=== PATIENT | female | born 1945 | race Caucasian/White ===

== ENCOUNTER 2016-06-26 08:30 | Outpatient (CLI) | payer MEDICARE, OTHER ==
[2016-06-10 16:46] VITALS: BP 136/67
== END 2016-06-26 08:32 ==
LOC: POD 08:30
PROVIDERS: ATTEND Podiatrist Public Medicine
DX: B35.1 Tinea unguium (principal); L60.0 Ingrowing nail; M79.674 Pain in right toe(s); M79.675 Pain in left toe(s)
CPT/HCPCS: 11721; G0463

== ENCOUNTER 2016-07-09 12:07 | Outpatient (CLI) | payer MEDICARE, OTHER ==
[2016-06-10 16:46] VITALS: BP 136/67
[2016-07-09 22:02] LABS: TOTAL PROTEIN 6.8 g/dL (6.0-8.5)
== END 2016-07-09 12:10 ==
LOC: LAB 12:07
PROVIDERS: ATTEND Family Medicine
DX: E78.2 Mixed hyperlipidemia (principal)
CPT/HCPCS: 36415; 80053; 80061

== ENCOUNTER 2016-08-15 08:05 | Emergency (ER) | payer MEDICARE, OTHER ==
[2016-08-15 08:34] LABS: BASOPHILS % 0.3 (0.0-1.5); EOSINOPHILS % 3.1 % (0.0-6.8); LYMPHOCYTES # 1.2 # k/uL (0.6-4.0); MEAN CORPUSCULAR HEMOGLOBIN 25.8 pg (28.0-34.0); MONOCYTES # 0.5 # k/uL (0.0-0.9); NEUTROPHILS # 8.6 # k/uL (1.4-7.7)
[2016-08-15] MEDS ORDERED: MAGNESIUM HYDROXIDE/AL HYDROX 30 ML UDC PO ONE (08:40)
[2016-08-15] MEDS ORDERED: Lidocaine 2%Visc 15ml 20 MG/ML UDC ONE (08:40)
[2016-08-15] MEDS: MAG HYDROX/AL HYDROX/SIMETH 30 ML, Lidocaine 2%Visc 15ml 20 MG, PHENobarb/HYOSCY/ATROPI... PO ONE ×3 (08:44)
--- NOTE | 2016-08-15 08:46 | ED Physician Documentation ---
Chest Pain - HISTORIAN Historian: patient, spouse - HPI Stated Complaint: "Acid Reflux" Chief Complaint: Chest Pain Additional Information: across the abd upper-epigastric pain w/ slight pain lower chest onset awoke 0530 after ate xs fruit last noct-assoc a[place]sha [place]. pmh GERD. says could hear stomach growl easily. Onset: hours (0530) Duration: waxing, waning (rates 7/10 but laughs and jokes) Last known Well Date: 08/14/16 Last Known Well Time: 20:00 Context: sleep Severity: moderate Quality: pressure, burning Chest Pain Radiation: no radiation Chest Pain Signs/Symptoms: diaphoresis. denies: nausea, vomiting, cool extremities, dizziness, tachypnea, tachycardia, hypotension, palpitations Relieved By: other (7up did not help even w/belching) - ROS CONST: none (slight normal color diarrhea this am-yest bm=ok) MS/LYMPH: none GI/: nausea, diarrhea. denies: vomiting, black stools EYES/ENT: none SKIN/ENDO: none NEURO/PSYCH: none - PAST HX TX risk factors: hypertension, other (gerd djd gout recent knee abscess being drained-doing well---also recent sinusitis-on augmentin and tessalon- improving). denies: cardiac disease, AMI, angina, CHF DVT/PE Risk Factors: none (has leg swelling several checks for DVT) Neuro deficit: none GI disease: GERD, steroids (occasionallyh for djd-not on them now) Lung disease: none Surgeries/Procedures: denies: cholecysectomy, appendectomy, hysterectomy Allergies/Adverse Reactions: Allergies Allergy/AdvReac Type Severity Reaction Status Date / Time Sulfa (Sulfonamide Allergy Intermediate hives Verified 08/15/16 08:36 Antibiotics) morphine AdvReac Severe Hives Verified 08/15/16 08:36 levofloxacin [From Levaquin] AdvReac Hives Verified 08/15/16 08:36 Home Medications: Ambulatory Orders Medication Instructions Recorded Fish Oil/Borage/Flax/Om3,6,9#1 2 tab PO D 04/27/14 [[place] 3-6-9 1,200 mg Softgel] Ibuprofen [Motrin Ib] 800 mg PO D 04/27/14 - SOCIAL HX Smoking History: non-smoker Alcohol Use: none Drug Use: none - FAMILY HX Family HX: denies: CAD under 55 (F/D CVA M/D/CA BREAST) - VITAL SIGNS Vital Signs: Vital Signs Temp Pulse Resp BP Pulse Ox 97 F L 88 18 146/65 99 08/15/16 08:05 08/15/16 08:19 08/15/16 08:05 08/15/16 08:05 08/15/16 08:19 - REVIEWED ASSESSMENTS Nursing Assessment Reviewed: Yes Vitals Reviewed: Yes ED Results Lab/Radiology - Lab Results Lab Results: Lab Results 08/15/16 08:20 WBC 10.80 K/ul K/ul (4.00-12.00) RBC 4.18 M/ul M/ul (3.90-5.20) Hgb 10.8 g/dL L g/dL (12.0-16.0) Hct 36.6 % % (34.5-46.5) MCV 87.7 fl fl (80.0-100.0) MCH 25.8 pg L pg (28.0-34.0) MCHC 29.4 g/dL L g/dL (30.0-36.0) RDW 15.6 % H % (11.3-14.3) Plt Count 397 K/mm3 K/mm3 (130-400) Neut % (Auto) 80.0 % H % (39.0-79.0) Lymph % (Auto) 10.7 % L % (16.0-50.0) Addison % (Auto) 5.0 % % (0.0-11.0) Eos % (Auto) 3.1 % % (0.0-6.8) Baso % (Auto) 0.3 (0.0-1.5) Neut # 8.6 # k/uL H # k/uL (1.4-7.7) Lymph # 1.2 # k/uL # k/uL (0.6-4.0) Addison # 0.5 # k/uL # k/uL (0.0-0.9) Eos # 0.3 # k/uL # k/uL (0.0-0.6) Baso # 0.0 # k/uL # k/uL (0.0-0.5) Reactive Lymphs % 0.8 % % (0.0-5.0) Reactive Lymphs # 0.1 # k/uL # k/uL (0.0-0.8) - Radiology Radiology Impressions: cxr=cardiomegally-no acute pos findings - Orders Orders: ED Orders Category Date Time Status Continuous EKG monitoring Q30M Care 08/15/16 08:19 Active Continuous Pulse Oximetry Q30M Care 08/15/16 08:[address] Saline Lock/IV NOW Care 08/15/16 08:19 Completed CHEST 1 VIEW [RAD] Stat Exams 08/15/16 08:19 Ordered CBC/PLATELET/DIFF Routine Lab 08/15/16 08:20 Completed CMP Routine Lab 08/15/16 08:20 Received CREATINE KINASE Routine Lab 08/15/16 08:20 Received TROPONIN I (cTnI) Stat Lab 08/15/16 08:20 Received Mag Hydrox/Al Hydrox/Simeth [Mylanta] 30 ml Med 08/15/16 08:41 Discontinued Lidocaine 2%Visc 15ml [Xylocaine] 20 mg PHENobarb/HYOSCY/ATROPINE/SCOP [] 10 ml PO NOW Oxygen Daily Oxygen 08/15/16 08:30 Ordered EKG WITH COMPARISON Stat Ther 08/15/16 08:19 Ordered Chest Pain Physical Exam - EXAM General Appearance: mild distress, anxious EENT: eye inspection normal Neck: nml inspection, no carotid bruit. No: JVD present, lymphadenopathy Respiratory: no resp. distress, chest non-tender, nml breath sounds CVS: reg. rate & rhythm, no murmur, no gallop Abdomen: soft, tenderness (EPIGASTRIC) Skin: warm/dry, normal color. No: cyanosis, diaphoresis, jaundice Extremities: non-tender, normal range of motion, edema. No: tenderness Neuro: oriented X3, CN's nml as tested, motor nml, sensation nml, mood/affect nml Discharge Clincal Impression: exab gerd, atypical chest pain Home Medications: Ambulatory Orders Fish Oil/Borage/Flax/Om3,6,9#1 [[place] 3-6-9 1,200 mg Softgel] 2 tab PO D Ibuprofen [Motrin Ib] 800 mg PO D 04/27/14 Comments: home cont prev tx add antacid-f/u w/pcp or rted Condition: Good Disposition: 01 HOME, SELF-CARE Decision to Admit: NO Decision Time: 10:22
[2016-08-15 08:48] LABS: eGFR (African) > 60; eGFR (Non-African) > 60
[2016-08-15 10:35] VITALS: BP 132/68
--- NOTE | 2016-08-15 13:09 | Diagnostic Imaging Report ---
[facility] [address] [facility].[address] [address] Report Submission Date: Aug 15, 2016 9:28:26 AM DEMOLITION HAMMER OPERATOR Patient Study Name: FADUMO TABARES Date: Aug 15, 2016 8:38:58 AM DEMOLITION HAMMER OPERATOR Modality Type: CR Gender: F Description: CHEST : 43 Institution: [facility] Physician MANI CHENG - ER Chest, 1 view History: CHEST PAIN SINCE THIS AM Findings: The heart size is mildly enlarged. The lungs are clear. There is no pleural effusion or pneumothorax identified. The osseous structures are normal. Impression: 1. No acute pulmonary disease. Electronically signed on Aug 15, 2016 9:28:26 AM DEMOLITION HAMMER OPERATOR by: Josias MCDANIELS
== END 2016-08-15 10:30 | disposition home or self-care (01) ==
LOC: ED 08:05
DX: K21.9 Gastro-esophageal reflux disease without esophagitis (principal); R07.9 Chest pain, unspecified
CPT/HCPCS: 71010; 80053; 82550; 84484; 85025; 93005; A9270; 99283; S1016

== ENCOUNTER 2016-08-30 08:58 | Outpatient (CLI) | payer MEDICARE, OTHER ==
--- NOTE | 2016-09-02 10:33 | OP Clinic Progress Note ---
REFERRING PHYSICIAN: Dr. Yeny Quintero REASON FOR VISIT: Danette Bee returns for follow up on her idiopathic polyarthritis, possible pseudogout, hyperuricemia or gout. She is finally off prednisone and she is doing fairly well. She has occasional flares of pain in the upper arms and the hands with a little bit of swelling and that resolve with indomethacin. Her weight keeps climbing up but she promises to try to diet and exercise. She developed an abscess of her right knee. This was incised and drained. Cultures were negative. She remains under the care of the wound clinic at [facility]. PRESENT MEDICATIONS: 1. Spironolactone 25 mg daily. 2. Requip 1 mg 3 times a day. 3. Oxybutynin 5 mg twice a day. 4. Omeprazole. 5. Lasix 40 mg daily. 6. Ferrous sulfate 324 mg daily. 7. Diltiazem 100 mg daily. 8. Lipitor 20 mg at bedtime. 9. Allopurinol 300 mg daily. 10. Indocin as needed. REVIEW OF SYSTEMS: Presently, no fevers, chills, sweats, chest pain, shortness of breath, cough, wheezing, nausea, vomiting, or diarrhea. PHYSICAL EXAMINATION: GENERAL: On exam, she looks well. VITAL SIGNS: T: 96.2, R: 18, heart rate is 90 and regular, BP: 150/85. HEENT: External ears and nose are unremarkable. LUNGS: Clear. HEART: Regular rate and rhythm. ABDOMEN: Soft. VASCULAR: No edema or cyanosis. SKIN: No rash. JOINTS: DIPs, PIPs, MCPs, wrists, elbows, shoulders are grossly unremarkable. LABORATORY: Review of her labs, shows mild anemia on August 15 with a hemoglobin of 10.8. Her white count was otherwise unremarkable. Creatinine was stable at 0.6. Her last uric acid from May 29, 2016, was 4.9. IMPRESSION: 1. Gout, stable. 2. Chondrocalcinosis with pseudogout, stable. PLAN: We will continue her present regimen. I discussed the need for weight loss. I will see her back in 6 months. cc: Dr. Yeny MCDANIELS
== END 2016-08-30 09:00 ==
LOC: RHEU 08:58
PROVIDERS: ATTEND Internal Medicine
DX: M10.9 Gout, unspecified (principal)
CPT/HCPCS: 99213; G0463

== ENCOUNTER 2016-09-25 08:43 | Outpatient (CLI) | payer MEDICARE, OTHER | END 2016-09-25 08:44 | LOC: POD 08:43 | PROVIDERS: ATTEND Podiatrist Public Medicine | DX: B35.1 Tinea unguium (principal); L60.0 Ingrowing nail; M79.674 Pain in right toe(s); M79.675 Pain in left toe(s) | CPT/HCPCS: 11721; G0463 ==

== ENCOUNTER 2016-12-07 09:46 | Outpatient (CLI) | payer MEDICARE, OTHER ==
[2016-12-07 10:27] LABS: BASOPHILS % 0.4 (0.0-1.5); EOSINOPHILS % 3.8 % (0.0-6.8); MEAN CORPUSCULAR HEMOGLOBIN 27.1 pg (28.0-34.0); MEAN CORPUSCULAR VOLUME 87.8 fl (80.0-100.0); MONOCYTES % 6.3 % (0.0-11.0); NEUTROPHILS # 5.8 # k/uL (1.4-7.7)
--- NOTE | 2016-12-07 10:33 | Diagnostic Imaging Report ---
PARRISH GARCIA [facility] [address] [facility] [address] [address] Report Submission Date: Dec 07, 2016 10:30:29 AM CDT Patient Study Name: FADUMO TABARES Date: Dec 07, 2016 10:06:09 AM CDT Modality Type: CR Gender: F Description: UPPER EXTREMITY : 43 Institution: [facility] Physician: PARRISH GARCIA 3 views of the 4th digit Clinical history: 4th digit swelling Findings: No acute fracture dislocation is identified. There is 4th pip joint space narrowing. Impression: 4th pip joint space narrowing Electronically signed on Dec 07, 2016 10:30:29 AM CDT by: Antwan MCDANIELS
== END 2016-12-07 10:00 ==
LOC: LAB 09:46
PROVIDERS: ATTEND Family Medicine
DX: M10.9 Gout, unspecified (principal)
CPT/HCPCS: 73140; 84550; 85025

== ENCOUNTER 2016-12-24 13:44 | Outpatient (CLI) | payer MEDICARE, OTHER ==
[2016-12-24 14:01] LABS: BASOPHILS % 0.2 (0.0-1.5); EOSINOPHILS % 2.9 % (0.0-6.8); MEAN CORPUSCULAR HEMOGLOBIN 27.6 pg (28.0-34.0); MEAN CORPUSCULAR VOLUME 86.4 fl (80.0-100.0); NEUTROPHILS # 8.4 # k/uL (1.4-7.7)
== END 2016-12-24 13:45 ==
LOC: LAB 13:44
PROVIDERS: ATTEND Family Medicine
DX: M25.441 Effusion, right hand (principal); R20.0 Anesthesia of skin
CPT/HCPCS: 36415; 82607; 82746; 84443; 84550; 85025

== ENCOUNTER 2017-01-08 08:42 | Outpatient (CLI) | payer MEDICARE, OTHER | END 2017-01-08 08:44 | LOC: POD 08:42 | PROVIDERS: ATTEND Podiatrist Public Medicine | DX: B35.1 Tinea unguium (principal); L60.0 Ingrowing nail; M79.674 Pain in right toe(s); M79.675 Pain in left toe(s) | CPT/HCPCS: 11721; G0463 ==

== ENCOUNTER 2017-02-28 09:05 | Outpatient (CLI) | payer MEDICARE, OTHER ==
--- NOTE | 2017-02-28 13:11 | OP Clinic Progress Note ---
Dear Dr. Quintero: REASON FOR VISIT: I had the pleasure of seeing Danette Bee in follow up. She is not doing as well as she was when I last saw her. I have been following her for "idiopathic polyarthritis" with concern for polyarticular gout versus possible pseudogout or both. She presently has worsening pain with stiffness kind of generalized but focusing mainly on the hands, shoulders, and feet. She has not noted any significant swelling and no new deformities. Her weight continues to be an issue. Her right knee abscess has resolved. PAST MEDICAL HISTORY: 1. Hypertension. 2. Hyperlipidemia. 3. Recent diagnosis of sleep apnea. PRESENT MEDICATIONS: 1. Spironolactone 25 mg daily. 2. Requip 1 mg 3 times a day. 3. Oxybutynin 5 mg twice a day. 4. Omeprazole. 5. Lasix 40 mg daily. 6. Diltiazem 100 mg daily. 7. Lipitor 20 mg at bedtime. 8. Allopurinol 300 mg daily. 9. Indocin as needed. REVIEW OF SYSTEMS: Patient has been started on a Z-Hugo. The fingers of her left hand, digits 1, 2 , and 3, have been going numb. Otherwise, no fevers, chills, sweats, chest pain, shortness of breath, cough, wheezing, nausea, vomiting, or diarrhea. PHYSICAL EXAMINATION: GENERAL: On exam, she looks well. VITAL SIGNS: T: 96.9, R: 20, Heart rate of 90, BP: 170/70. HEENT: External ears and nose are unremarkable. EOMs are intact. LUNGS: Clear bilaterally. HEART: Regular rhythm. ABDOMEN: Soft. VASCULAR: No edema or cyanosis. PERIPHERAL JOINTS: DIPs are unremarkable except for hard bony swelling. The PIPs are slightly tender; however, the MCPs are swollen and tender and a little ulnar deviation bilaterally. Wrists with good range of motion. Positive carpal tunnel on the left. Elbows and shoulders with good range of motion but with some tenderness to palpation. No effusion. Knees, ankles, and feet are tender. Compression stockings are noted. IMPRESSION: Idiopathic polyarthritis, gout, pseudogout, still concerned about seronegative rheumatoid arthritis (RA), presently with what appears to be carpal tunnel syndrome. PLAN: She had nerve conduction tests and we are waiting for those. I am stopping her Indocin and diclofenac and putting her on prednisone 10 mg twice a day for 4 weeks. We will reevaluate her at that time. We will recheck a sedimentation rate and CRP today, as well as a rheumatoid factor. Thank you very much for the opportunity to participate in the care of your patient. Best regards, cc: Dr. Yeny MCDANIELS
== END 2017-02-28 09:06 ==
LOC: RHEU 09:05
PROVIDERS: ATTEND Internal Medicine
DX: M13.0 Polyarthritis, unspecified (principal); M10.9 Gout, unspecified
CPT/HCPCS: G0463

== ENCOUNTER 2017-03-03 09:22 | Outpatient (CLI) | payer MEDICARE, OTHER | END 2017-03-03 09:23 | LOC: LAB 09:22 | PROVIDERS: ATTEND Internal Medicine | DX: M31.7 Microscopic polyangiitis (principal); G56.00 Carpal tunnel syndrome, unspecified upper limb | CPT/HCPCS: 36415; 84443; 84550; 85651; 86140; 86431 ==

== ENCOUNTER → 2017-04-04 | Outpatient (CLI) | payer MEDICARE, OTHER ==
--- NOTE | 2017-04-04 14:21 | OP Clinic Progress Note ---
REASON FOR VISIT: Danette Bee returns for follow on her idiopathic polyarthritis. When I last saw her 4 weeks ago, I put her on prednisone 10 mg twice a day and she is feeling significantly better. All her joint pain and stiffness has resolved. Her carpal tunnel syndrome, however, on the left has not improved and she is slated for surgery on April 24. PAST MEDICAL HISTORY: 1. Hypertension. 2. Hyperlipidemia. 3. Sleep apnea. PRESENT MEDICATIONS: 1. Allopurinol 300 mg daily. 2. Lipitor 20 mg at bedtime. 3. Diltiazem 100 mg daily. 4. Lasix 40 mg daily. 5. Omeprazole. 6. Oxybutynin. 7. Requip 1 mg 3 times a day. 8. Spironolactone. 9. Prednisone 10 mg twice a day. REVIEW OF SYSTEMS: No fevers, chills, sweats, chest pain, shortness of breath, cough, or wheezing. PHYSICAL EXAMINATION: GENERAL: On exam, she looks well. VITAL SIGNS: Vital signs are stable. HEENT: Sclerae are anicteric. Conjunctivae are pink. No stomatitis or glossitis. LUNGS: Clear. HEART: Regular rhythm. ABDOMEN: Soft. VASCULAR: No edema or cyanosis. PERIPHERAL JOINTS: No synovitis at the DIPs, PIPs, MCPs, wrists, elbows, shoulders, hips, knees, ankles, and feet. Her left wrist is in a brace. DIAGNOSTIC STUDIES: Her last labs show her sedimentation was 32. Rheumatoid factor was again negative. IMPRESSION: Idiopathic polyarthritis. Still concerned for seronegative rheumatoid arthritis versus other. PLAN: I have given her a prescription to be given to the surgeon that if any tissue is obtained, it should be analyzed for crystals and sent to pathology. We are going to taper her off of prednisone prior to her surgery. She is to go to 10 mg daily for 7 days and then 5 mg daily until April 17, at which time she will stop it. Thank you very much. cc: Dr. Yeny MCDANIELS
== END ==
LOC: RHEU 11:33
PROVIDERS: ATTEND Internal Medicine
DX: M13.0 Polyarthritis, unspecified (principal)
CPT/HCPCS: 99213; G0463

== ENCOUNTER 2017-04-09 08:46 | Outpatient (CLI) | payer MEDICARE, OTHER | END 2017-04-09 09:00 | LOC: POD 08:46 | PROVIDERS: ATTEND Podiatrist Public Medicine | DX: B35.1 Tinea unguium (principal); L60.0 Ingrowing nail; M79.674 Pain in right toe(s); M79.675 Pain in left toe(s) | CPT/HCPCS: 11721; G0463 ==

== ENCOUNTER 2017-05-19 11:03 | Outpatient (CLI) | payer MEDICARE, OTHER ==
[2017-05-19] MEDS ORDERED: ALBUTEROL SULFATE 2.5 MG/3 ML AMPUL.NEB NEB ONE (11:24)
== END 2017-05-19 11:04 ==
LOC: RT 11:03
PROVIDERS: ATTEND Family Medicine
DX: R06.09 Other forms of dyspnea (principal)
CPT/HCPCS: 94060

== ENCOUNTER 2017-05-23 13:13 | Outpatient (CLI) | payer MEDICARE, OTHER ==
--- NOTE | 2017-06-04 11:52 | CONSULTATION REPORT ---
PRIMARY CARE PROVIDER: Dr. Yeny Quintero CONSULTING PHYSICIAN: Apoorva Jewell MD CHIEF COMPLAINT: "I have had recent surgery and they tell me that afterwards my oxygen level is too low." PROBLEM LIST: 1. Hypoxemia. 2. Dyspnea on exertion. 3. Bladder incontinence, status post bladder implant. 4. Carpal tunnel surgery at [facility] on 05/22/17. 5. Hypertension. 6. Hyperlipidemia. 7. Gastroesophageal reflux disease (GERD). 8. Rhinosinusitis. 9. Obstructive sleep apnea. 10. Restless leg syndrome. 11. Chronic venous stasis. 12. Abnormal chest CT, left upper lobe nodule: September 2008 followed at [facility] for 2 years and discharged from Pulmonary Clinic. 13. Thyroid nodule. 14. Morbid obesity Class 3. BMI is 52.7. HISTORY OF PRESENT ILLNESS: This is a 71-year-old female with an extensive past medical history but is here in clinic today primarily due to hypoxemia that has been noted on 2 recent postoperative recovery days. One procedure done at [facility] was a procedure for bladder incontinence with the second step being an implantation device. It was noted during her postoperative recovery that she was hypoxemic. There was also another recent incident which involved a carpal tunnel procedure done at [facility] and they also told her she had a low oxygen level and it needed to be worked up. She also complains of dyspnea on exertion and has recently been given an albuterol inhaler which she states helps her. She states she was recently seen at the [facility] on May 23, 2017, and they are recommending an echocardiogram and a stress test. Her return appointment is on June 03. She has been told she has sleep apnea; however, she does not like a CPAP and therefore, she does not use it. She does admit that multiple, multiple physicians have told her she needs to use it, so recently she obtained a mouth appliance. She does not have home oxygen. She does not have a home nebulizer machine and she has never been referred to pulmonary rehabilitation. At present, she denies chest pain. There is no PND. She does have edema. Her weight is increasing. Her appetite is good. Energy level is adequate. There is no chronic cough. No fever, chills, or sweats. No history of asthma, pneumonia, or DVTs. She is a life-long nonsmoker. Review of some old records that were presented to me after the patient had left : An echocardiogram done at [facility] on 06/12/16. Ejection fraction (EF) of 66%. No regional wall motion abnormality. RVSP is 38 mmHg. REVIEW OF SYSTEMS: For pertinent review of systems, please see HPI. Please also refer to [facility] patient intake record. MEDICATIONS: 1. Omeprazole 40 mg daily. 2. Allopurinol 100 mg daily. 3. Ropinirole 3 mg daily. 4. Diltiazem 180 mg daily. 5. Atorvastatin 20 mg daily. 6. Spironolactone 20 mg daily. 7. Furosemide 40 mg daily. 8. Indomethacin 50 mg p.r.n. 9. Layland-3. 10. Aspirin 325 mg daily. 11. Tumeric/curcumin 1 daily. 12. Magnesium 400 mg daily. 13. Tylenol Arthritis 650 mg q.i.d. 14. Ferrous gluconate 325 mg daily. 15. Probiotic 1 daily. 16. Women's multivitamin 1 daily. ALLERGIES: 1. Morphine. 2. Sulfa. 3. Levofloxacin. SOCIAL HISTORY: Patient is . She is retired. She has not used any tobacco ever. No alcohol either. FAMILY HISTORY: Father at 81 from a stroke. Mother at 72 with lung cancer. PHYSICAL EXAMINATION: VITAL SIGNS: BP: 147/96, P: 98, R: 20, T: 96.8. Room air oxygen saturation is 98%. Height: 5 feet 5 inches. Weight: 317 pounds. BMI of 52.7. GENERAL: This is a well-developed, morbidly obese female in no acute distress speaking in full sentences. HEENT: Pupils are equal and reactive. Oropharynx is clear. No thrush. NECK: Supple. No adenopathy. Trachea midline. LUNGS: Bilateral equal excursions. Good air movement. Clear. No wheezes. No crackles. CARDIAC: Rate and rhythm are regular. S1 and S2. No S3 or S4, murmur, rub, or gallops. ABDOMEN: Massively obese, soft, and nontender. Positive bowel sounds. EXTREMITIES: Bilateral chronic venous stasis changes and 1+ to 2+ edema. NEUROLOGIC: Alert and oriented x3. Grossly nonfocal. IMAGING: Imaging was independently reviewed by me personally. Chest x-ray on 08/15/16: Portable film. Cephalization, cardiomegaly, and obesity. ASSESSMENT AND PLAN: PROBLEM #1: Hypoxia: Noted after recent surgical procedures involving sedation. Most likely the patient has a degree of obesity hyperventilation/obstructive sleep apnea (ABBEY). PLAN: 1. Obtain sleep study done at [facility] somewhere between March and April 2017. 2. I have already encouraged the patient that a CPAP would most likely be a much better route for her. We will discuss this after I have reviewed her sleep study. 3. Obtain spirometry done at [facility]. 4. Send patient to [facility] or [facility] for full a pulmonary function test (PFT). 5. Obtain the operating room (OR) records from the recent bladder procedure and carpal tunnel procedure done at [facility]. PROBLEM #2: Dyspnea on exertion: Most likely multi-factorial, including respiratory, cardiac, and obesity. PLAN: 1. Obtain echo and stress test that will be done at the [facility] within the next 2 weeks. 2. PFTs as described above. 3. Continue albuterol p.r.n. PROBLEM #3: Chronic venous stasis changes. Again, possibly multifactorial, pulmonary, especially obesity hyperventilation and involvement of the right heart and/or left-sided congestive heart failure, although the echo from [facility] in 2016 showed a normal ejection fraction. PLAN: 1. Obtain the sleep study. 2. Obtain echo results. 3. Obtain PFTs. PROBLEM #4: Abnormal chest CT scan. Left upper lobe nodule first noted in September 2008 and followed at the [facility] for 2 years with patient subsequently released by [facility]. PROBLEM #5: Pulmonary preventative disease. Patient is up to date with both her Pneumonia shot and her current flu vaccine. PLAN: Return to clinic after above studies and old records have been obtained. cc: Dr. Yeny MCDANIELS
== END 2017-05-23 13:14 ==
LOC: PULMONARY 13:13
PROVIDERS: ATTEND Internal Medicine Pulmonary Disease
DX: R09.02 Hypoxemia (principal); R06.00 Dyspnea, unspecified; I87.8 Other specified disorders of veins; G47.33 Obstructive sleep apnea (adult) (pediatric); E66.9 Obesity, unspecified
CPT/HCPCS: 99214; G0463

== ENCOUNTER 2017-05-30 10:48 | Outpatient (CLI) | payer MEDICARE, OTHER ==
--- NOTE | 2017-05-30 13:41 | OP Clinic Progress Note ---
REASON FOR VISIT: Danette Bee returns for follow up on her idiopathic polyarthritis and gout. She had her left carpal tunnel release done about a week ago. She has not noted any significant improvement as of yet. She will be seeing her orthopedic physician next week. Otherwise, her past medical history remains unchanged. Her medications are unchanged, except the patient did stop her prednisone. Off the prednisone, she is feeling well. She has been taking ibuprofen. She was given Katy at the time of her surgery. PAST MEDICAL HISTORY: 1. Hypertension. 2. Hyperlipidemia. 3. Sleep apnea. PRESENT MEDICATIONS: 1. Allopurinol 300 mg daily. 2. Lipitor 20 mg at bedtime. 3. Diltiazem 100 mg. 4. Lasix 40 mg. 5. Omeprazole. 6. Requip 1 mg 3 times a day. 7. Spironolactone. 8. Ibuprofen. REVIEW OF SYSTEMS: No fevers, chills, sweats, chest pain, shortness of breath, cough, or wheezing and again, no pain. PHYSICAL EXAMINATION: GENERAL: VITAL SIGNS: Height: 5 feet 5 inches. Weight: 324. R: 20, T: 96.4, heart rate 69, BP: 150 /68. Extremities: No swelling of the hands and the left wrist is bandaged. IMPRESSION: Carpal tunnel, status post release. PLAN: I am waiting for the surgical report, as well as the pathology report, otherwise , no other changes at this time. The patient will come back and see me on a p.r.n. basis. I have given her a suggestion that she take Naprosyn 2 to 3 times a day for her joint pains. cc: Dr. Yeny MCDANIELS
== END 2017-05-30 10:55 ==
LOC: RHEU 10:48
PROVIDERS: ATTEND Internal Medicine
DX: M13.0 Polyarthritis, unspecified (principal); M10.9 Gout, unspecified; Z98.890 Other specified postprocedural states
CPT/HCPCS: 99213; 99214

== ENCOUNTER 2017-07-09 08:54 | Outpatient (CLI) | payer MEDICARE, OTHER | END 2017-07-09 08:55 | LOC: POD 08:54 | PROVIDERS: ATTEND Podiatrist Public Medicine | DX: B35.1 Tinea unguium (principal); L60.0 Ingrowing nail; M79.674 Pain in right toe(s); M79.675 Pain in left toe(s) | CPT/HCPCS: 11721; G0463 ==

== ENCOUNTER 2017-10-08 08:21 | Outpatient (CLI) | payer MEDICARE, OTHER | END 2017-10-08 08:22 | LOC: POD 08:21 | PROVIDERS: ATTEND Podiatrist Public Medicine | DX: B35.1 Tinea unguium (principal); L60.0 Ingrowing nail; M79.675 Pain in left toe(s); M79.674 Pain in right toe(s) | CPT/HCPCS: 11721; G0463 ==

== ENCOUNTER 2018-01-07 08:19 | Outpatient (CLI) | payer MEDICARE, OTHER | END 2018-01-07 08:20 | LOC: POD 08:19 | PROVIDERS: ATTEND Podiatrist Public Medicine | DX: B35.1 Tinea unguium (principal); L60.0 Ingrowing nail; M79.674 Pain in right toe(s); M79.675 Pain in left toe(s) | CPT/HCPCS: 11721; G0463 ==

== ENCOUNTER 2018-05-11 10:19 | Outpatient (CLI) | payer MEDICARE, OTHER ==
--- NOTE | 2018-05-11 11:43 | Diagnostic Imaging Report ---
PARRISH GARCIA [facility] [address] [facility] [address] [place] [address]. [address] Report Submission Date: May 11, 2018 10:56:49 AM JOSLYN Patient Study Name: FADUMO TABARES Date: May 11, 2018 10:19:01 AM EAR NOSE THROAT SURGEON Modality Type: DX Gender: F Description: SPINE : 43 Institution: [facility] Physician: PARRISH GARCIA Cervical spine History: Neck stiffness AP, lateral and odontoid projections of the cervical spine demonstrate multilevel facet arthropathy. The dens is intact. The lateral masses of C1 and C2 are aligned. There is grade 1 anterolisthesis of C4 relative to C5 measured at 4 mm. There is moderate disc space narrowing at C5/6 and C6/7. Posterior spondylosis is present at C5/6. Anterior spondylosis is present at C5/6 and C6/7. Vertebral body height is maintained. Impression: Multilevel facet arthropathy. Grade 1 anterolisthesis of C4 relative to C5. Degenerative disc disease at C5/6 and C6/7. Electronically signed on May 11, 2018 10:56:49 AM JOSLYN by: Shanthi MCDANIELS
== END 2018-05-11 10:20 ==
LOC: RAD 10:19
PROVIDERS: ATTEND Family Medicine
DX: M43.12 Spondylolisthesis, cervical region (principal); M12.88 Other specific arthropathies, not elsewhere classified, other specified site; M50.322 Other cervical disc degeneration at C5-C6 level; M54.2 Cervicalgia
CPT/HCPCS: 72040

== ENCOUNTER 2018-09-14 09:39 | Outpatient (CLI) | payer MEDICARE, OTHER ==
[2018-09-14 10:05] LABS: MEAN CORPUSCULAR HEMOGLOBIN 23.3 pg (28.0-34.0)
[2018-09-14 10:06] LABS: BASOPHILS % 0.3 (0.0-1.5); EOSINOPHILS % 4.1 % (0.0-6.8); MONOCYTES % 9.1 % (0.0-11.0); NEUTROPHILS # 3.8 # k/uL (1.4-7.7)
[2018-09-14 10:34] LABS: eGFR (Non-African) > 60
--- NOTE | 2018-09-14 12:53 | Diagnostic Imaging Report ---
LAWANDA BENAVIDES [facility] [address] [facility] [address] Report Submission Date: Sep 14, 2018 12:49:51 PM CDT Patient Study Name: FADUMO TABARES Date: Sep 14, 2018 10:03:00 AM CDT Modality Type: DX Gender: F Description: CHEST 2VIEW : 43 Institution: [facility] Physician: LAWANDA BENAVIDES Examination: PA and lateral chest. History: Evaluate lung holliday. Comparison exam: None provided. Findings: PA and lateral views of the chest demonstrates a normal cardiac and mediastinal silhouette. Tortuous aorta with vascular calcifications. Mild interstitial prominence. No focal infiltrate. No blunting of the costophrenic margins. Acromioclavicular joint degenerative changes. Impression: Mild interstitial prominence without focal consolidation - may represent some increased volume status/congestive failure. No effusion. Electronically signed on Sep 14, 2018 12:49:51 PM CDT by: Jose MCDANIELS
== END 2018-09-14 09:40 ==
LOC: RT 09:39
PROVIDERS: ATTEND Family Medicine
DX: R06.09 Other forms of dyspnea (principal); D64.9 Anemia, unspecified; R91.8 Other nonspecific abnormal finding of lung field
CPT/HCPCS: 36415; 71046; 80053; 82728; 83540; 83550; 83880; 85025

== ENCOUNTER 2018-10-02 14:30 | Outpatient (CLI) | payer MEDICARE, OTHER | END 2018-10-02 14:33 | LOC: LAB 14:30 | PROVIDERS: ATTEND Family Medicine | DX: I50.22 Chronic systolic (congestive) heart failure (principal) | CPT/HCPCS: 36415; 83880 ==

== ENCOUNTER 2018-10-08 09:50 | Outpatient (CLI) | payer MEDICARE, OTHER ==
[2018-10-08 10:29] LABS: eGFR (Non-African) > 60
== END 2018-10-08 09:52 ==
LOC: LAB 09:50
PROVIDERS: ATTEND Family Medicine
DX: D64.9 Anemia, unspecified (principal); R60.0 Localized edema
CPT/HCPCS: 36415; 80048; 85027

== ENCOUNTER 2018-11-10 16:38 | Outpatient (CLI) | payer MEDICARE, OTHER | END 2018-11-10 16:40 | LOC: LAB 16:38 | PROVIDERS: ATTEND Family Medicine | DX: D64.9 Anemia, unspecified (principal) | CPT/HCPCS: 36415; 85027 ==

== ENCOUNTER 2019-01-26 09:23 | Outpatient (CLI) | payer MEDICARE, OTHER ==
[2019-01-26 10:12] LABS: MAGNESIUM 2.1 mIU/l (1.6-2.3); eGFR (Non-African) > 60
== END 2019-01-26 09:25 ==
LOC: LAB 09:23
PROVIDERS: ATTEND Family Medicine
DX: D64.9 Anemia, unspecified (principal)
CPT/HCPCS: 36415; 80048; 83540; 83735; 85027

== ENCOUNTER 2019-05-27 15:44 | Outpatient (CLI) | payer MEDICARE, OTHER ==
[2019-05-27 16:39] LABS: BASOPHILS % 0.4 % (0.0-1.5); NEUTROPHILS # 3.6 # k/uL (1.4-7.7)
--- NOTE | 2019-05-27 16:56 | Diagnostic Imaging Report ---
PATIENT MR#: [id number] PATIENT PATIENT NAME: FADUMO TABARES DATE OF : 1945 REFERRING PHYSICIAN: Yeny Quintero EXAM DATE: 05/27/2019 ACCESSION NUMBER: [id number] EXAM DESCRIPTION: CHEST 2VIEW HISTORY: UPPER LEFT BACK PAIN. COMPARISON: August 15, 2016. CHEST RADIOGRAPH, FRONTAL AND LATERAL: Upper mediastinum: Not widened. Heart: No cardiomegaly. Lungs: No lobar infiltrate, pulmonary edema, pneumothorax or significant effusion. Skeleton: Thoracic spondylosis without evidence of compression fracture. The scapula and ribs appear generally intact on these non-dedicated views. IMPRESSION: No acute thoracic process. Read by: Dr. Abhishek Breen Transcribed by: Abhishek Breen Transcribed Date: 05/27/2019 4:55:11 PM Electronically signed by: Dr. Abhishek Breen Date signed: 05/27/2019 4:55:11 PM
[2019-05-27 17:15] LABS: APPEARANCE,URINE CLEAR (CLEAR); COLOR,URINE YELLOW (YELLOW)
[2019-05-27 17:16] LABS: OCCULT BLOOD,URINE TRACE-INTACT (NEGATIVE)
[2019-05-27 17:18] LABS: eGFR (Non-African) > 60
== END 2019-05-27 15:49 ==
LOC: LAB 15:44
PROVIDERS: ATTEND Family Medicine
DX: M54.6 Pain in thoracic spine (principal); R11.2 Nausea with vomiting, unspecified
CPT/HCPCS: 36415; 71046; 80053; 81002; 85025